=== PATIENT | female | born 1925 | race Hispanic/Latino ===

== ENCOUNTER 2017-04-11 06:15 | Day surgery (SDC) | payer MEDICARE ==
[2017-04-07 08:42] VITALS: BP 100/75
[2017-04-07 09:32] LABS: BASOPHILS % (AUTO) 0.8 % (0.0-5.0); EOSINOPHILS % (AUTO) 3.8 % (0.0-8.0); HEMATOCRIT 36.6 % (36-48); LYMPHOCYTES % (AUTO) 13.7 % (21.0-51.0); MEAN CORPUSCULAR HEMOGLOBIN 30.9 pg (27.0-33.0); MEAN CORPUSCULAR VOLUME 93.7 fL (79-99); MONOCYTES % (AUTO) 14.9 % (3.0-13.0); NEUTROPHILS % (AUTO) 66.8 % (40.0-77.0); PLATELET COUNT (AUTO) 223 K/uL (130-400); RED CELL DISTRIBUTION WIDTH 13.7 % (11.0-15.5); WHITE BLOOD COUNT (AUTO) 6.6 K/uL (4.8-10.8)
[2017-04-07 09:33] LABS: APPEARANCE,URINE Cloudy (CLEAR); BILIRUBIN,URINE Negative (NEGATIVE); COLOR,URINE Yellow (YELLOW); GLUCOSE, URINE (UA) Negative (NEGATIVE); KETONES,URINE Negative (NEGATIVE); LEUKOCYTE ESTERASE ,URINE Large (NEGATIVE); NITRATE,URINE Positive (NEGATIVE); OCCULT BLOOD,URINE Negative (NEGATIVE); PH,URINE 5.5 (5.0-8.0); PROTEIN,URINE Trace (NEGATIVE)
[2017-04-07 09:48] LABS: CREATININE 0.9 mg/dL (0.5-1.5); POTASSIUM 4.8 mmol/L (3.5-5.1)
[2017-04-07 09:51] LABS: INR 0.99 (0.85-1.15); PARTIAL THROMBOPLASTIN TIME 25.7 SEC (26.3-35.5); PROTHROMBIN TIME 10.4 SEC (9.6-11.6)
[2017-04-07 10:11] LABS: RBC,URINE 0-1 /HPF (0-1)
[2017-04-07 10:12] LABS: BACTERIA,URINE Many /HPF (None Seen); SQUAMOUS EPITHELIAL CELL,UR Rare /LPF (0-2)
[~2017-04-11] VITALS: Ht 149.9 cm; Wt 55.3 kg
[2017-04-11] VITALS (11 sets, daily range): BP systolic 106–167; BP diastolic 47–81
[~2017-04-11 06:15] MED LIST: ADV250 IH; ALBUHFA IH; ASPI-1181 PO; ATOR40TA69 PO; B2/V1TAB PO; CLOP75TA14 PO; FERR325T22 PO; KETO50CA PO; LEVO25TA54 PO; METO-391 PO; PANT40TA25 PO
[2017-04-11] MEDS ORDERED: SODIUM CHLORIDE 0.9% 1000ML 1,000 ML IV ONE (07:02)
[2017-04-11] MEDS ORDERED: HEPARIN SODIUM 1000UNIT/ML 10ML VIAL ONE (07:19)
[2017-04-11] MEDS ORDERED: SODIUM BICARB 50MEQ 50ML VIAL ONE (07:19)
[2017-04-11] MEDS ORDERED: LIDOCAINE HCL 2% 20ML ONE (07:19)
[2017-04-11] MEDS ORDERED: NITROGLYCERIN 5 MG/ML 10 ML VIAL IV ONE (07:19)
[2017-04-11] MEDS ORDERED: ISOVUE-300 100 ML VIAL IV ONE (07:21)
[2017-04-11] MEDS ORDERED: ISOVUE-370 50ML VIAL IV ONE (08:47)
[2017-04-11] MEDS ORDERED: ATROPINE SULFATE 0.1 MG/ML 10 ML SYG IVP ONE (08:52)
[2017-04-11] MEDS ORDERED: DOPAMINE HCL 400 MG/D5%-WATER 0 ML IV ONE (08:53)
[2017-04-11] MEDS ORDERED: HYDRALAZINE HCL 20 MG/ML VIAL ONE ×3 (08:58→13:28)
[2017-04-11] MEDS ORDERED: LABETALOL 20 MG/4 ML DISP.SYRIN IV ONE (09:31)
[2017-04-11] MEDS ORDERED: SODIUM CHLORIDE 0.9% 1000ML 1,000 ML IV SCH (09:52)
== END 2017-04-11 14:40 | disposition home or self-care (01) ==
LOC: DAH 06:15
PROVIDERS: ATTEND Internal Medicine Cardiovascular Disease
DX: I65.22 Occlusion and stenosis of left carotid artery (principal); I70.8 Atherosclerosis of other arteries; E78.5 Hyperlipidemia, unspecified; I73.9 Peripheral vascular disease, unspecified; I10 Essential (primary) hypertension; E03.9 Hypothyroidism, unspecified; I25.10 Atherosclerotic heart disease of native coronary artery without angina pectoris; Z86.73 Personal history of transient ischemic attack (TIA), and cerebral infarction without residual deficits; Z90.49 Acquired absence of other specified parts of digestive tract; Z85.038 Personal history of other malignant neoplasm of large intestine
CPT/HCPCS: 36215; 36223; 36415; 71010; 75716; 76775; 80048; 81001; 85025; 85610; 85730; 99156; 99157; C1760; C1769; C1894; J0360 ×3; J1644 ×2; J3490 ×3; J7030; Q9967 ×2; J0461; J1265